=== PATIENT | female | born 1990 | race Caucasian/White ===

== ENCOUNTER 2024-11-17 08:47 | Emergency (ER) | payer OTHER, SELFPAY ==
[2024-11-17] VITALS (7 sets, daily range): BP systolic 115–137; BP diastolic 69–81; PULSE 65–71; RESP 18; TEMP 36.6; O2SAT 92–100; BMI 28.8
[2024-11-17 10:15] LABS: HCG Quantitative /Beta subunit 19783 mIU/mL
--- NOTE | 2024-11-17 10:27 | ED_ITS ---
HPI - General Adult General Chief complaint: OB/Uterine Contractions Stated complaint: possible miscarriage Time Seen by Provider: 11/17/24 08:58 Source: patient Mode of arrival: Family Vehicle History of Present Illness HPI narrative: 34-year-old with LMP September 27. She was seen at [facility] on November 16 with complaints of light vaginal bleeding and mild right lower quadrant cramping. On November 12 she had a beta hCG of 28,000 per [facility] records. Ultrasound done on the shows single intrauterine gestational sac with yolk sac and possible pole. No cardiac activity is seen finding is concerning for intrauterine demise and spontaneous in progress. Small subchorionic hematoma was also noted. Patient felt that she was given contradictory information and answers and comes in today with further questions. Continues to have mild spotting and mild cramping Review of Systems Review of Systems Narrative: Pertinent positive and negative findings as per HPI Patient History Social History Smoking Status: Never smoker Smoking Status: Never smoker Exam Initial Vital Signs Initial Vital Signs: Vital Signs Temperature 97.9 F 11/17/24 09:02 Pulse Rate 71 11/17/24 09:02 Respiratory Rate 18 11/17/24 09:02 Blood Pressure 125/69 11/17/24 09:02 Pulse Oximetry 100 11/17/24 09:02 Oxygen Delivery Method Room Air 11/17/24 09:02 General: Alert appropriate in no acute distress Respiratory: Able to speak in full sentences, no obvious respiratory distress Skin: No obvious rashes, warm and dry Neurologic: Grossly intact no obvious asymmetries or abnormalities Psych: Tearful but otherwise appropriate insight and affect, cooperative Course Orders Ordered: ED Orders 11/17/24 09:15 Beta HCG, Quant [HCG Quantitative /Beta subunit] Stat Vital Signs Vital signs: Vital Signs - 8 hr 11/17/24 09:02 Temperature 97.9 F Pulse Rate 71 Respiratory Rate 18 Blood Pressure 125/69 Pulse Oximetry 100 Oxygen Delivery Method Room Air Medical Decision Making Lab Data Labs: Lab Results 11/17/24 Range/Units 09:15 HCG, Quant 88108 mIU/mL [facility] Narrative Medical decision making narrative: 34-year-old with ongoing miscarriage. was identified on the if the quantitative hCG of 28,000, she was seen at [facility] on this 6 with the ultrasound showing small subchorionic hematoma, no clear pole and no cardiac activity. Quantitative hCG on the 6th was 25,527. Blood type is A positive Quantitative hCG is unfortunately still dropping and down to 19,783. The patient's looking for reassurance, wondering if there is anything that can be done, any hope that this will continue to be a viable . Discuss all of this. With the ultrasound from yesterday that continued decreasing hCG is will go on to be a miscarriage. Reviewed with her what to expect, likely normal menstrual cycle leg bleeding with perhaps heavier bleeding on the 1st day. Reassured her that this is not going to affect her fertility, encouraged her to continue her vitamins. She would questions about when she can try getting again and we discussed the fact that giving her body 3 months to fully recover and make sure that she is perfectly healthy before trying again is typically the usual recommendation. There was no indication for additional imaging or hospitalization at this time. She is given copies of lab work, ultrasound from [facility] and hCG from today and we will follow up with her primary doctor Discharge Plan Departure Patient Disposition: Home Clinical Impression: Miscarriage Instructions: DI for Miscarriage Activity Restrictions/Additional Instructions: Thank you for coming in today, I am sorry that you are dealing with this loss can be very difficult to deal with an feel very isolating. As we talked about, approximately a 3rd of pregnancies and in early miscarriages. This miscarriage is not going to affect you are fertility going forward. With your quantitative hCG continuing to drop and the ultrasound yesterday that did not show obvious pole with cardiac activity (which would be expected at this point in your ) this is going to continue to a full loss. I suspect that you will have. Similar to what you usually have with a bit heavier bleeding on the 1st day. You may have some cramping, ibuprofen can be helpful in dealing with this I have given you ultrasound and blood work to share with your primary care physician Please do continue taking your vitamins If you find that you are having excessively heavy bleeding, going through more than a pad an hour for more than 4 hours at a time, noticed bright red blood from your vagina or are dizzy due to the bleeding you do need to return to the emergency department Stand Alone Forms: Patient Portal/API/Survey
== END 2024-11-17 11:13 | disposition home or self-care (01) ==
PROVIDERS: Emergency Provider Emergency Medicine
DX: O03.9 Complete or unspecified spontaneous abortion without complication (principal)
CPT/HCPCS: 36415; 84702; 99281; 99283

== ENCOUNTER 2024-11-26 05:55 | Emergency (ER) | payer OTHER, SELFPAY ==
[2024-11-26] VITALS (8 sets, daily range): BP systolic 92–98; BP diastolic 51–55; PULSE 51–64; RESP 18; TEMP 36.4; O2SAT 97–100; BMI 28.5
--- NOTE | 2024-11-26 06:08 | DI.US.S_ITS ---
PROCEDURE: US OB <= 14 WEEKS FETUS INDICATIONS: Miscarriage OUTSIDE/PRIOR DATING DATA: Not available TECHNIQUE: Real-time scanning was performed of the fetus and maternal pelvic organs, with image documentation. COMPARISON: None. FINDINGS: Embryo: No intrauterine gestation is seen. No cardiac activity is detected. There is echogenic material seen within the lower uterine segment near cervix. Maternal organs: Not evaluated. IMPRESSION: Limited exam. No intrauterine gestation is seen. Possible retained product within lower uterine segment near cervix. Finding is consistent with spontaneous with retained products. Clinician was present during the exam. We strive to produce accurate, complete, and clear reports of imaging services. To assist us in improving patient care, this report was composed using standard report templates and voice recognition software. Therefore, it may contain abnormal punctuation, insertions and/or omissions. Occasional wrong-word or sound-alike substitutions may occur. Though we review the report and make efforts to correct it, we do recommend that the report be read carefully in proper context to recognize any text inaccuracies. Dictated by: Flex Ashley M.D. on 11/26/2024 at 8:58 Approved by: Flex Ashley M.D. on 11/26/2024 at 9:00
[2024-11-26 06:09] LABS: Add Manual Diff / Slide Review NO; Basophils Absolute Auto 100 /uL (0-100); Basophils Percent Auto 0.5 % (0-2); Eosinophils Absolute Auto 0 /uL (0-450); Eosinophils Percent Auto 0.1 % (2-4); Hematocrit 35.9 % (36-46); Hemoglobin 12.1 g/dL (12.0-16.0); Lymphocytes Absolute Auto 1200 /uL (1100-4500); Lymphocytes Percent Auto 12.5 % (25-40); Mean Corpuscular HGB Conc 33.8 % (30-36); Mean Corpuscular Hemoglobin 30.8 PG (26-34); Mean Corpuscular Volume 91.3 fL (80-100); Monocytes Absolute Auto 400 /uL (0-900); Monocytes Percent Auto 3.8 % (3-14); Neutrophils Absolute Auto 8200 /uL (1500-7000); Neutrophils Percent Auto 83.1 % (50-75); Platelet Count 240 X10^3/uL (150-400); Red Blood Cell Count 3.94 X10^6/uL (4.0-5.2); Red Cell Distribution Width 13.7 % (11.6-14.8); White Blood Cell Count 9.8 X10^3/uL (4.5-11.0)
--- NOTE | 2024-11-26 06:11 | ED.PREGNANCY ---
HPI - <Ashley Adame DO - Last Filed: 11/26/24 17:56> General Chief complaint: Vaginal Bleeding Stated complaint: abd pain/ preg 5 wks-6days Time Seen by Provider: 11/26/24 06:00 History of Present Illness HPI Narrative: Patient 34-year-old female presenting to day with vaginal bleeding. She was currently 5 weeks history of cervical cancer. She was seen evaluated here November 17 diagnosed with miscarriage, her HCG was decreasing slightly she did have an ultrasound which showed an IUP and is type A positive. Ultrasound also showed a subchorionic hematoma as well. She followed up with her primary care provider since then she is continued to have spotting however tonight she was having extreme intense pain cramping and bleeding. Tonight she was going through more than 2 pads in 1 hour he was not passed out. EMS reports that she was in extreme pain requiring 150mcg of fentanyl and 20 mg ketamine Related Data Previous Rx's Medication Instructions Recorded ondansetron 4 mg disintegrating 4 mg PO Q8H PRN nausea and 11/26/24 tablet vomiting #14 tabs oxycodone-acetaminophen 5 mg-325 1 tab PO Q6H PRN pain #14 tabs 25 mg tablet Allergies Allergy/AdvReac Type Severity Reaction Status Date / Time No Known Drug Allergies Allergy Verified 11/26/24 06:47 Exam <Ashley Adame DO - Last Filed: 11/26/24 17:56> Initial Vital Signs Initial Vital Signs: Vital Signs Temperature 97.6 F 11/26/24 08:14 Pulse Rate 52 L 11/26/24 08:14 Blood Pressure 98/51 L 11/26/24 08:14 Pulse Oximetry 97 11/26/24 08:14 GENERAL: Alert 34-year-old female appears uncomfortable HEENT: Head atraumatic,EOMI, pupils reactive, face symmetric, moist mucous membranes CARDIOVASCULAR: Regular rate and rhythm without murmurs, rubs or gallops. RESPIRATORY: Breath sounds equal bilaterally, no wheezes rales or rhonchi. ABDOMEN: Soft, nontender. Normoactive bowel sounds all 4 quadrants. No guarding or rebound. PELVIC: External genitalia is normal, dark vaginal bleeding os open tissue at os EXTREMITIES: Normal range of motion, no clubbing or edema. Neurovascularly intact NEUROLOGICAL: Alert and oriented x4.Normal gait and speech. Cranial nerves II through XII grossly intact. SKIN: Warm, dry, no laceration, no petechiae, no rashes or lesions. <Meche Lebron MD - Last Filed: 11/26/24 10:19> Initial Vital Signs Initial Vital Signs: Vital Signs Temperature 97.6 F 11/26/24 08:14 Pulse Rate 52 L 11/26/24 08:14 Blood Pressure 98/51 L 11/26/24 08:14 Pulse Oximetry 97 11/26/24 08:14 Course <Ashley Adame DO - Last Filed: 11/26/24 17:56> Orders Ordered: Discontinued Medications Hydromorphone HCl (Hydromorphone 0.5 Mg Inj) 0.5 mg IV NOW ONE Stop: 11/26/24 06:17 Last Admin: 11/26/24 06:22 Dose: 0.5 mg Documented By: Acetaminophen (Ofirmev) 1,000 mg in 100 mls @ 400 mls/hr IV NOW ONE Stop: 11/26/24 06:26 Last Infusion: 11/26/24 06:48 Dose: Infused Documented By: Admin: 11/26/24 06:23 Dose: 400 mls/hr Documented By: Sodium Chloride (Normal Saline 0.9%) 1,000 mls @ 1,000 mls/hr IV BOLUS ONE Stop: 11/26/24 10:30 Last Infusion: 11/26/24 10:30 Dose: Infused Documented By: Admin: 11/26/24 09:40 Dose: 1,000 mls/hr Documented By: CONG Ketorolac Tromethamine (Ketorolac 30 Mg/Ml Vial) 15 mg IV NOW ONE Stop: 11/26/24 06:44 Last Admin: 11/26/24 06:49 Dose: 15 mg Documented By: Oxycodone/Acetaminophen (Oxycodone/Acetaminophen 5/325 Tablet) 1 tab PO NOW ONE Stop: 11/26/24 07:44 Last Admin: 11/26/24 07:57 Dose: 1 tab Documented By: CONG Vital Signs Vital signs: Vital Signs - 8 hr 11/26/24 09:56 11/26/24 09:56 11/26/24 10:00 Pulse Rate 64 53 L Blood Pressure 94/53 L Pulse Oximetry 99 99 11/26/24 10:00 Pulse Rate Blood Pressure 96/54 L Pulse Oximetry <Meche Lebron MD - Last Filed: 11/26/24 10:19> Orders Ordered: Discontinued Medications Hydromorphone HCl (Hydromorphone 0.5 Mg Inj) 0.5 mg IV NOW ONE Stop: 11/26/24 06:17 Last Admin: 11/26/24 06:22 Dose: 0.5 mg Documented By: Acetaminophen (Ofirmev) 1,000 mg in 100 mls @ 400 mls/hr IV NOW ONE Stop: 11/26/24 06:26 Last Infusion: 11/26/24 06:48 Dose: Infused Documented By: Admin: 11/26/24 06:23 Dose: 400 mls/hr Documented By: Sodium Chloride (Normal Saline 0.9%) 1,000 mls @ 1,000 mls/hr IV BOLUS ONE Stop: 11/26/24 10:30 Last Infusion: 11/26/24 10:30 Dose: Infused Documented By: Admin: 11/26/24 09:40 Dose: 1,000 mls/hr Documented By: CONG Ketorolac Tromethamine (Ketorolac 30 Mg/Ml Vial) 15 mg IV NOW ONE Stop: 11/26/24 06:44 Last Admin: 11/26/24 06:49 Dose: 15 mg Documented By: Oxycodone/Acetaminophen (Oxycodone/Acetaminophen 5/325 Tablet) 1 tab PO NOW ONE Stop: 11/26/24 07:44 Last Admin: 11/26/24 07:57 Dose: 1 tab Documented By: CONG Vital Signs Vital signs: Vital Signs - 8 hr 11/26/24 09:56 11/26/24 09:56 11/26/24 10:00 Pulse Rate 64 53 L Blood Pressure 94/53 L Pulse Oximetry 99 99 11/26/24 10:00 Pulse Rate Blood Pressure 96/54 L Pulse Oximetry MDM - OB/Uterine Contractions <Ashley Adame DO - Last Filed: 11/26/24 17:56> Lab Data 11/26/24 06:00 11/26/24 06:00 Labs: Lab Results 11/26/24 11/26/24 Range/Units 06:00 07:45 WBC 9.8 (4.5-11.0) X10^3/uL RBC 3.94 L (4.0-5.2) X10^6/uL Hgb 12.1 (12.0-16.0) g/dL Hct 35.9 L (36-46) % MCV 91.3 (80-100) fL MCH 30.8 (26-34) PG MCHC 33.8 (30-36) % RDW 13.7 (11.6-14.8) % Plt Count 240 (150-400) X10^3/uL Neut % (Auto) 83.1 H (50-75) % Lymph % (Auto) 12.5 L (25-40) % [place] % (Auto) 3.8 (3-14) % Eos % (Auto) 0.1 L (2-4) % Baso % (Auto) 0.5 (0-2) % Neut # (Auto) 8200 H (4081-8113) /uL Lymph # (Auto) 1200 (5580-1052) /uL [place] # (Auto) 400 (0-900) /uL Eos # (Auto) 0 (0-450) /uL Baso # (Auto) 100 (0-100) /uL Sodium 137 (137-145) mmol/L Potassium 3.6 (3.4-5.1) mmol/L Chloride 110 H (98-107) mmol/L Carbon Dioxide 20 L (22-32) mmol/L BUN 10 (7-17) mg/dL Creatinine 0.73 (0.52-1.04) mg/dL Estimated GFR > 60 (>60) mL/min BUN/Creatinine Ratio 13.7 (6-22) Glucose 108 H (70-100) mg/dL Calcium 8.6 (8.4-10.2) mg/dL Total Bilirubin 0.9 (0.2-1.3) mg/dL AST 22 (14-36) IU/L ALT 16 (<35) IU/L Alkaline Phosphatase 39 (38-126) U/L Total Protein 6.3 (6.3-8.2) g/dL Albumin 3.7 (3.5-5.0) g/dL Globulin 2.6 (1.7-4.1) g/dL Albumin/Globulin Ratio 1.4 (1.0-2.8) HCG, Quant 91822 mIU/mL Urine Color Red Urine Appearance Sl cloudy Urine pH 8.5 H (4.5-8.0) Ur Specific [place] 1.015 (1.000-1.035) Urine Protein 1+ H (Negative) Urine Glucose (UA) Negative (Negative) g/dL Urine Ketones Negative (NEGATIVE) Urine Occult Blood 3+ H (Negative) Urine Nitrate Negative (Negative) Urine Bilirubin Negative (NEGATIVE) Urine Urobilinogen 0.2 (0.2) E.U./dL Ur Leukocyte Esterase Negative (NEGATIVE) Urine RBC 30-100/hpf H (0-5/HPF) Urine WBC None seen (0-5/HPF) Ur Squamous Epith Cells 1-5 /hpf (0-5/HPF) Urine Bacteria None seen (None) Ur Culture Indicated? Cult not indicated Vol Urine Centrifuged 10ml (spun) Blood Type A Positive MDM Narrative Medical decision making narrative: Patient 34-year-old female presenting today with ongoing miscarriage. Having severe intense pain and bleeding tonight. She was a decreasing hCG was 19,783 now is 10,632. No evidence of anemia hemoglobin 12.1 hematocrit 35.9 no leukocytosis Exam does show bleeding does not appear to be excessive she has some tissue at the os. <Meche Lberon MD - Last Filed: 11/26/24 10:19> Lab Data Labs: Lab Results 11/26/24 11/26/24 Range/Units 06:00 07:45 WBC 9.8 (4.5-11.0) X10^3/uL RBC 3.94 L (4.0-5.2) X10^6/uL Hgb 12.1 (12.0-16.0) g/dL Hct 35.9 L (36-46) % MCV 91.3 (80-100) fL MCH 30.8 (26-34) PG MCHC 33.8 (30-36) % RDW 13.7 (11.6-14.8) % Plt Count 240 (150-400) X10^3/uL Neut % (Auto) 83.1 H (50-75) % Lymph % (Auto) 12.5 L (25-40) % [place] % (Auto) 3.8 (3-14) % Eos % (Auto) 0.1 L (2-4) % Baso % (Auto) 0.5 (0-2) % Neut # (Auto) 8200 H (6361-8338) /uL Lymph # (Auto) 1200 (9272-4594) /uL [place] # (Auto) 400 (0-900) /uL Eos # (Auto) 0 (0-450) /uL Baso # (Auto) 100 (0-100) /uL Sodium 137 (137-145) mmol/L Potassium 3.6 (3.4-5.1) mmol/L Chloride 110 H (98-107) mmol/L Carbon Dioxide 20 L (22-32) mmol/L BUN 10 (7-17) mg/dL Creatinine 0.73 (0.52-1.04) mg/dL Estimated GFR > 60 (>60) mL/min BUN/Creatinine Ratio 13.7 (6-22) Glucose 108 H (70-100) mg/dL Calcium 8.6 (8.4-10.2) mg/dL Total Bilirubin 0.9 (0.2-1.3) mg/dL AST 22 (14-36) IU/L ALT 16 (<35) IU/L Alkaline Phosphatase 39 (38-126) U/L Total Protein 6.3 (6.3-8.2) g/dL Albumin 3.7 (3.5-5.0) g/dL Globulin 2.6 (1.7-4.1) g/dL Albumin/Globulin Ratio 1.4 (1.0-2.8) HCG, Quant 21971 mIU/mL Urine Color Red Urine Appearance Sl cloudy Urine pH 8.5 H (4.5-8.0) Ur Specific [place] 1.015 (1.000-1.035) Urine Protein 1+ H (Negative) Urine Glucose (UA) Negative (Negative) g/dL Urine Ketones Negative (NEGATIVE) Urine Occult Blood 3+ H (Negative) Urine Nitrate Negative (Negative) Urine Bilirubin Negative (NEGATIVE) Urine Urobilinogen 0.2 (0.2) E.U./dL Ur Leukocyte Esterase Negative (NEGATIVE) Urine RBC 30-100/hpf H (0-5/HPF) Urine WBC None seen (0-5/HPF) Ur Squamous Epith Cells 1-5 /hpf (0-5/HPF) Urine Bacteria None seen (None) Ur Culture Indicated? Cult not indicated Vol Urine Centrifuged 10ml (spun) Blood Type A Positive MDM Narrative Medical decision making narrative: Patient 34-year-old female presenting today with ongoing miscarriage. Having severe intense pain and bleeding tonight. She was a decreasing hCG was 19,783 now is 10,632. No evidence of anemia hemoglobin 12.1 hematocrit 35.9 no leukocytosis Exam does show bleeding does not appear to be excessive she has some tissue at the os. 700 Dr Lebron Patient is independently examined, labs as well as ultrasound independently reviewed. Patient's pain has been relatively well-controlled it is beginning to have some increasing cramping and we discussed pain control. Discussed the entire process. At this point her hCG is going inappropriately. Her ultrasound shows very small amount of products of conception in the lower uterine segment and I suspect her pain is dilation of the internal os and I suspect that she is going to pass this small amount of tissue shortly. Explain in the process and what were seen in the ultrasound was reassuring for the patient. We will try Percocet and we will continue to watch. She is far too anxious to discharge at this time. 9am patient is re-evaluated. Has been quite effective. Has been given a L of fluid. With shared decision-making we opted for discharge home. She will be given a small prescription for Percocet to help over the next couple of days. She does have resources for both emotional and physical help. She is safe for discharge Discharge Plan Departure Patient Disposition: Home Clinical Impression: Miscarriage Instructions: DI for Miscarriage Activity Restrictions/Additional Instructions: Thank you for coming in today Your miscarriage is currently happening. Significant cramping and pain that you are feeling is your cervix dilating enough to let out the small amount of cells and clot. Your ultrasound does not show any other significant pathology or complications. Your blood work is reassuring. You have been given fluids and narcotics to help with the cervical dilation and contractions that are causing the cramping. In the emergency room you are given a dose of Toradol which is in the same family as ibuprofen. You can begin taking additional ibuprofen around noon today. I will give you a prescription for Percocet which is oxycodone plus Tylenol. If you are still cramping and hurting I would recommend to ibuprofen and 1 Percocet around noon. You can repeat this every 6 hours as needed. I suspect that once the main bolus of tissue and clot passes through your cervix, your pain we will significantly subside. You will have continued menstrual like bleeding for a couple of days. After the main clot has passed, you likely have bleeding similar to very heavy. For 12-24 hours. If you are gushing blood, bright red blood, going through more than 2 pads per hour or are dizzy lightheaded and obviously feeling worse, please return to the ER I am in the ER all day today and you can absolutely call back to talk with me if you have questions. My shift and 6:00 p.m.. The ER phone #[phone] I wish you the very best Prescriptions: New ondansetron 4 mg tablet,disintegrating 4 mg PO Q8H PRN (Reason: nausea and vomiting) Qty: 14 0RF oxycodone-acetaminophen 5-325 mg tablet 1 tab PO Q6H PRN (Reason: pain) Qty: 14 0RF Stand Alone Forms: Patient Portal/API/Survey
[2024-11-26 06:21] LABS: Alanine Aminotransferase 16 IU/L (<35); Albumin 3.7 g/dL (3.5-5.0); Albumin Globulin Ratio 1.4 (1.0-2.8); Alkaline Phosphatase 39 U/L (38-126); Aspartate Aminotransferase 22 IU/L (14-36); BUN Creatinine Ratio 13.7 (6-22); Bilirubin Total 0.9 mg/dL (0.2-1.3); Blood Urea Nitrogen 10 mg/dL (7-17); Calcium 8.6 mg/dL (8.4-10.2); Carbon Dioxide 20 mmol/L (22-32); Chloride 110 mmol/L (98-107); Estimated Glomerular Filt Rate > 60 mL/min (>60); Globulin 2.6 g/dL (1.7-4.1); Glucose 108 mg/dL (70-100); HEMOLYSIS < 15 (0-50); Potassium 3.6 mmol/L (3.4-5.1); Sodium 137 mmol/L (137-145); Total Protein 6.3 g/dL (6.3-8.2)
[2024-11-26] MEDS: HYDROMORPHONE 0.5 MG INJ IV (06:22)
[2024-11-26] MEDS: ACETAMINOPHEN IV 1,000 MG/100 ML VIAL 400 MG IV (06:23)
[2024-11-26 06:38] LABS: HCG Quantitative /Beta subunit 10632 mIU/mL
--- NOTE | 2024-11-26 06:39 | PC.NURSE ---
Assisted with pelvic. Patient unable to collect a sample at this time
--- NOTE | 2024-11-26 06:40 | PC.NURSE ---
Patient passing POC with minimal bleeding
[2024-11-26] MEDS: KETOROLAC 30 MG/ML VIAL 15 MG IV (06:49)
[2024-11-26] MEDS: OXYCODONE/ACETAMINOPHEN 5/325 TABLET 1 TAB PO (07:57)
[2024-11-26 08:00] LABS: Appearance Urine UA SL CLOUDY; Bilirubin Urine UA NEGATIVE (NEGATIVE); Color Urine UA RED; Glucose Urine UA NEGATIVE (Negative); Ketones Urine UA NEGATIVE (NEGATIVE); Leukocyte Esterase Urine UA NEGATIVE (NEGATIVE); Nitrite Urine UA NEGATIVE (Negative); Occult Blood Urine UA 3+ (Negative); Protein Urine UA 1+ (Negative); Specific Gravity Urine UA 1.015 (1.000-1.035); Urine Volume 10mL (spun); Urobilinogen Urine UA 0.2 E.U./dL (0.2); pH Urine UA 8.5 (4.5-8.0)
[2024-11-26 08:04] LABS: Bacteria Urine None Seen; Culture Indicated Urine Cult Not Indicated; RBC Urine 30-100/HPF (0-5/HPF); Squamous Epithelial Cell Urine 1-5 /HPF (0-5/HPF); WBC Urine None Seen (0-5/HPF)
[2024-11-26] MEDS: SODIUM CHLORIDE 0.9% 1,000 ML 1000 ML IV (09:40)
== END 2024-11-26 10:28 | disposition home or self-care (01) ==
PROVIDERS: Emergency Medicine; Emergency Provider Emergency Medicine
DX: O03.9 Complete or unspecified spontaneous abortion without complication (principal); Z85.41 Personal history of malignant neoplasm of cervix uteri
CPT/HCPCS: 36415; 76801; 80053; 81001; 84702; 85025; 86900; 86901; 96361; 96365; 96375; 99284; J0134; J1171; J1885

== ENCOUNTER → 2025-06-22 08:30 | Outpatient (CLI) | payer OTHER, SELFPAY ==
[2025-06-26 19:07] LABS: Gest Age on Col Date 15.7 weeks (.); OSBR Risk 1IN 8106 (.)
== END ==
PROVIDERS: Referring Provider Obstetrics & Gynecology; Visit Provider Obstetrics & Gynecology
DX: Z34.02 Encounter for supervision of normal first pregnancy, second trimester (principal)
CPT/HCPCS: 36415; 82105

== ENCOUNTER → 2025-06-26 15:10 | Outpatient (CLI) | payer OTHER, SELFPAY ==
[2025-06-26 15:38] LABS: Appearance Urine UA CLEAR; Bilirubin Urine UA NEGATIVE (NEGATIVE); Color Urine UA YELLOW; Glucose Urine UA NEGATIVE (Negative); Ketones Urine UA NEGATIVE (NEGATIVE); Leukocyte Esterase Urine UA NEGATIVE (NEGATIVE); Nitrite Urine UA NEGATIVE (Negative); Occult Blood Urine UA NEGATIVE (Negative); Protein Urine UA NEGATIVE (Negative); Specific Gravity Urine UA 1.025 (1.000-1.035); Urobilinogen Urine UA 0.2 E.U./dL (0.2)
[2025-06-26 15:42] LABS: pH Urine UA 6.0 (4.5-8.0)
[2025-06-26 15:44] LABS: Culture Indicated Urine Cult Not Indicated
== END ==
PROVIDERS: Obstetrics & Gynecology; Referring Provider Emergency Medicine; Visit Provider Emergency Medicine
DX: R30.0 Dysuria (principal)
CPT/HCPCS: 81001

== ENCOUNTER 2025-07-02 06:51 | Emergency (ER) | payer OTHER, SELFPAY ==
[2025-07-02] VITALS (12 sets, daily range): BP systolic 97–106; BP diastolic 54–66; PULSE 55–75; RESP 12–23; TEMP 36.8; O2SAT 97–100; BMI 30.4
--- NOTE | 2025-07-02 07:02 | ED.GENADULT ---
HPI - General Adult General Stated complaint: Per patient, having [place] on and off Time Seen by Provider: 07/02/25 06:54 Related Data Home Medications ?Medication ?Instructions ?Recorded ?Confirmed melatonin 2.5 mg chewable tablet 2.5 mg PO BEDTIME PRN 04/16/25 06/22/25 vitamin-ferrous sulfate tab PO 04/16/25 06/22/25 27 mg iron-folic acid 0.8 mg tablet Previous Rx's ?Medication ?Instructions ?Recorded ondansetron 4 mg disintegrating 4 mg PO Q6H PRN nausea and 06/04/25 tablet vomiting #20 tabs pyridoxine (vitamin B6) 50 mg 50 mg PO DAILY PRN nausea and 06/18/25 tablet vomiting #30 tabs nitrofurantoin macrocrystal 100 mg 100 mg PO BID #10 caps 06/26/25 capsule Allergies Allergy/AdvReac Type Severity Reaction Status Date / Time mushroom Allergy Mild Rash Verified 07/02/25 07:08 COVID vaccine [id number] (6 AdvReac Intermediate Verified 07/02/25 07:08 mos-4 yrs) ([employer]) (From [employer] COVID (6mo-4y)PF) Patient History Medical History (Updated 05/17/25 @ 18:49 by Diana Patel) Asthma (~2000) PTSD (post-traumatic stress disorder) (~2012) Depression (~2012) Anxiety (~2012) Cervical cancer (~2012) LGSIL on Pap smear of cervix (~08/2013) Chlamydia (~2017) Surgical History (Updated 05/17/25 @ 18:49 by Diana Patel) H/O LEEP (loop electrosurgical excision procedure) of cervix complicating (~2012) No pertinent past surgical history Family History (Updated 05/17/25 @ 18:52 by Diana Patel) Mother Vertigo Hypertension Cervical cancer Complex cyst of both ovaries Ovarian malignancy Heart disease Hyperlipidemia Mental health problem Father Diabetes mellitus Hypertension Mental health problem Grandfather Heart attack Dementia Heart disease Hypertension Hyperlipidemia Mental health problem Grandmother Dementia Kidney failure Hypertension Heart disease Hyperlipidemia Mental health problem Grandmother Heart attack Heavy smoker Alcoholism Alcoholic liver disease Heart disease Hypertension Hyperlipidemia Mental health problem Grandfather Diabetes mellitus Heart disease Hyperlipidemia Hypertension Social History marital status: unmarried,living together number of children: 0 household members: significant other and family lives independently: Yes caregiver/support person: Yes (grandmother) housing: house pets and animals: Yes (cats, dog) education level: other occupational status: employed current occupational exposures/hazards: Yes (air ordinance, 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 david needs: No travel history: recent seatbelt use: always helmet use: Yes water heater temp set < 120 deg: Yes working smoke detector in home: Yes fire extinguisher in home: Yes carbon monox detector in home: Yes firearms in home: Yes firearms unloaded and locked: Yes do you feel safe at home: Yes in current or past relationships, have you been: other Tobacco: How many years used: 14 quit status: has quit before second hand exposure: No alcohol intake: former substance use type: does not use during the past year weight has: increased > 10 lbs well-balanced diet: rarely or never daily servings fruits/ve-1 caffeine: Yes (aware of 200mg limit) Type(s) of exercise: walking and weight lifting Discharge Plan Departure Prescriptions: No Action ondansetron 4 mg tablet,disintegrating 4 mg PO Q6H PRN (Reason: nausea and vomiting) Qty: 20 0RF pyridoxine (vitamin B6) 50 mg tablet 50 mg PO DAILY PRN (Reason: nausea and vomiting) Qty: 30 0RF nitrofurantoin macrocrystal 100 mg capsule 100 mg PO BID Qty: 10 0RF Rx Instructions: must administer with a meal/food vit-ferrous sulfat-FA 27 mg iron- 0.8 mg tablet PO melatonin 2.5 mg tablet,chewable 2.5 mg PO BEDTIME PRN Referrals: Provider,Bren CROOKS [Primary Care Provider, Family Practice]
--- NOTE | 2025-07-02 07:43 | ED.PREGNANCY ---
HPI - General Chief complaint: OB/Uterine Contractions Stated complaint: Per patient, having Phelps Jeffers on and off Time Seen by Provider: 07/02/25 06:54 Source: patient and family Mode of arrival: Family Vehicle Limitations: no limitations History of Present Illness HPI Narrative: 35-year-old female patient, otherwise healthy, 3 para 0 SAB 2 at 17+ weeks EGA by LMP and ultrasound who complains of lower uterine/abdominal tightening about every 10 minutes since 2:00 a.m. this morning. No fever, dysuria, nausea or diarrhea. Related Data Home Medications ?Medication ?Instructions ?Recorded ?Confirmed melatonin 2.5 mg chewable tablet 2.5 mg PO BEDTIME PRN 04/16/25 06/22/25 vitamin-ferrous sulfate tab PO 04/16/25 06/22/25 27 mg iron-folic acid 0.8 mg tablet Previous Rx's ?Medication ?Instructions ?Recorded ondansetron 4 mg disintegrating 4 mg PO Q6H PRN nausea and 06/04/25 tablet vomiting #20 tabs pyridoxine (vitamin B6) 50 mg 50 mg PO DAILY PRN nausea and 06/18/25 tablet vomiting #30 tabs nitrofurantoin macrocrystal 100 mg 100 mg PO BID #10 caps 06/26/25 capsule Allergies Allergy/AdvReac Type Severity Reaction Status Date / Time mushroom Allergy Mild Rash Verified 07/02/25 07:08 COVID vaccine [id number] (6 AdvReac Intermediate Verified 07/02/25 07:08 mos-4 yrs) ([facility]) (From [facility] COVID (6mo-4y)PF) Review of Systems Review of Systems ROS Unobtainable: All systems reviewed & are unremarkable except as noted in HPI and below Gastrointestinal Gastrointestinal: Reports as per HPI Genitourinary Genitourinary: Reports as per HPI Exam Narrative Exam Narrative: General: Alert and conversant. No distress. Appears well nourished and well hydrated Lungs: Clear to auscultation with good air movement. No wheezing, rales or rhonchi. No respiratory distress Abdomen: Soft,. Mild suprapubic tenderness. With no distention or masses. Normal bowel sounds. No rebound or guarding Musculoskeletal: Exam of the extremities, axial spine and ribcage reveals no deformity, bony tenderness or swelling. Range of motion intact Neuro: Alert and oriented. Cranial nerves, motor, sensory and cerebellar all grossly intact. No focal deficit Skin: Warm and normal color. No rashes Psychological: Normal affect and interaction. No evidence of delusion or psychosis. Normal mood. Initial Vital Signs Initial Vital Signs: Vital Signs Pulse Rate 75 07/02/25 07:02 Respiratory Rate 23 07/02/25 07:02 Blood Pressure 106/66 07/02/25 07:02 Pulse Oximetry 98 07/02/25 07:02 Course Course Course Narrative: 08:40 Second trimester OB ultrasound is unremarkable with no concerning findings. I discussed the patient's care with Dr. Tello OBGYN. She requests that we also check wet mount for bacterial vaginosis and urine GC chlamydia. Otherwise the plan will be hydration and follow up with OBGYN as needed or return to the ER if worse. Urinalysis, wet mount and GC chlamydia all negative. Patient has minimal symptoms at this point. Orders Ordered: ED Orders 07/02/25 07:47 US OB >= 14 weeks Fetus Stat 07/02/25 09:00 Chlamydia Gonorrhea PCR -URINE Stat Urinalysis and Microscopic Stat 07/02/25 09:30 Wet Prep Tric BV Candice Stat Vital Signs Vital signs: Vital Signs - 8 hr 07/02/25 08:00 07/02/25 08:00 07/02/25 08:21 Pulse Rate 55 L 58 L Respiratory Rate 14 13 Blood Pressure 98/58 L Pulse Oximetry 99 100 07/02/25 08:21 07/02/25 08:30 07/02/25 08:30 Pulse Rate 59 L Respiratory Rate 14 Blood Pressure 103/61 100/59 L Pulse Oximetry 99 07/02/25 08:59 07/02/25 08:59 07/02/25 09:00 Pulse Rate 56 L Respiratory Rate 18 Blood Pressure 105/56 L 98/59 L Pulse Oximetry 100 07/02/25 09:00 07/02/25 09:30 07/02/25 09:30 Pulse Rate 56 L 59 L Respiratory Rate 16 21 Blood Pressure 99/59 L Pulse Oximetry 99 100 07/02/25 10:00 07/02/25 10:00 07/02/25 10:30 Pulse Rate 58 L Respiratory Rate 17 Blood Pressure 98/54 L 101/61 Pulse Oximetry 100 07/02/25 10:30 07/02/25 11:00 07/02/25 11:00 Pulse Rate 59 L 59 L Respiratory Rate 15 16 Blood Pressure 100/58 L Pulse Oximetry 100 100 MDM - OB/Uterine Contractions Lab Data Labs: Lab Results 07/02/25 Range/Units 09:00 Urine Color Yellow Urine Appearance Clear Urine pH 7.5 (4.5-8.0) Ur Specific Otis 1.010 (1.000-1.035) Urine Protein Negative (Negative) Urine Glucose (UA) Negative (Negative) g/dL Urine Ketones Negative (NEGATIVE) Urine Occult Blood Negative (Negative) Urine Nitrate Negative (Negative) Urine Bilirubin Negative (NEGATIVE) Urine Urobilinogen 0.2 (0.2) E.U./dL Ur Leukocyte Esterase Negative (NEGATIVE) Urine RBC None seen (0-5/HPF) Urine WBC None seen (0-5/HPF) Ur Squamous Epith Cells None seen (0-5/HPF) Urine Bacteria None seen (None) Ur Culture Indicated? Cult not indicated Vol Urine Centrifuged 10ml (spun) Ur Chlamydia DNA (PCR) Not detected N gonorrhoeae DNA (PCR) Not detected Imaging Data Second trimester OB ultrasound: Radiologist's Impression: IMPRESSION: Limited study demonstrating a living 2nd trimester intrauterine with no sonographic evidence of complications. Comment: Consider return for 2nd trimester anatomy survey at the appropriate time. [facility] Narrative Medical decision making narrative: Patient with lower abdominal intermittent tightness at 17+ weeks EGA who has negative lab work for vaginitis/vaginosis or UTI. As per OBGYN with whom we consulted she will monitor symptoms and follow up closely with them in the next few days. Return to the ER if worse. Discharge Plan Departure Patient Disposition: Home Clinical Impression: Intermittent lower abdominal pain, Phelps Hick's contraction Instructions: DI for Abdominal Pain -- Early Activity Restrictions/Additional Instructions: Plan: Hydration, rest and supportive care. Follow up with OBGYN within the next 3 days. Return to the ER if worse Prescriptions: No Action ondansetron 4 mg tablet,disintegrating 4 mg PO Q6H PRN (Reason: nausea and vomiting) Qty: 20 0RF pyridoxine (vitamin B6) 50 mg tablet 50 mg PO DAILY PRN (Reason: nausea and vomiting) Qty: 30 0RF nitrofurantoin macrocrystal 100 mg capsule 100 mg PO BID Qty: 10 0RF Rx Instructions: must administer with a meal/food vit-ferrous sulfat-FA 27 mg iron- 0.8 mg tablet PO melatonin 2.5 mg tablet,chewable 2.5 mg PO BEDTIME PRN Referrals: ProviderBren [Primary Care Provider, Family Practice] Stand Alone Forms: Patient Portal/API
--- NOTE | 2025-07-02 07:47 | DI.US.S_ITS ---
PROCEDURE: US OB >= 14 WEEKS FETUS INDICATIONS: Contractions pain OUTSIDE/PRIOR DATING DATA: Last menstrual period (LMP): Unknown LMP-based estimated date of delivery (HOLLY): Unknown. First dating scan (date and location): Not applicable. Estimated date of delivery (HOLLY) from first dating scan: 04/16/2025. The calculations are made using the ultrasound HOLLY of 12/04/2025. TECHNIQUE: Real-time scanning was performed of the fetus, with image documentation and biometric measurements. Endovaginal scanning: Not performed COMPARISON: None. FINDINGS: General: A single living intrauterine gestation is present. Presentation: Transverse with head to the maternal left. Placenta: Placental position is posterior and fundal , without previa. Amniotic fluid index: 11.6 cm, normal range is 5-24 cm. Single deepest vertical pocket is 4.1 cm. heart rate: 144 beats per minute. Maternal cervical canal: 6.1 cm long. Normal lower limit is 2.5 cm. Clinically estimated gestational age: 17 weeks 6 days IMPRESSION: Limited study demonstrating a living 2nd trimester intrauterine with no sonographic evidence of complications. Comment: Consider return for 2nd trimester anatomy survey at the appropriate time. We strive to produce accurate, complete, and clear reports of imaging services. To assist us in improving patient care, this report was composed using standard report templates and voice recognition software. Therefore, it may contain abnormal punctuation, insertions and/or omissions. Occasional wrong-word or sound-alike substitutions may occur. Though we review the report and make efforts to correct it, we do recommend that the report be read carefully in proper context to recognize any text inaccuracies. Dictated by: Pal Chavarria M.D. on 07/02/2025 at 8:48 Approved by: Pal Chavarria M.D. on 07/02/2025 at 8:52
[2025-07-02 09:06] LABS: Appearance Urine UA CLEAR; Bilirubin Urine UA NEGATIVE (NEGATIVE); Color Urine UA YELLOW; Glucose Urine UA NEGATIVE (Negative); Ketones Urine UA NEGATIVE (NEGATIVE); Leukocyte Esterase Urine UA NEGATIVE (NEGATIVE); Nitrite Urine UA NEGATIVE (Negative); Occult Blood Urine UA NEGATIVE (Negative); Protein Urine UA NEGATIVE (Negative); Specific Gravity Urine UA 1.010 (1.000-1.035); Urobilinogen Urine UA 0.2 E.U./dL (0.2)
[2025-07-02 09:10] LABS: pH Urine UA 7.5 (4.5-8.0)
[2025-07-02 09:13] LABS: Culture Indicated Urine Cult Not Indicated
[2025-07-02 10:39] LABS: Urine N gonorrhoeae NOT DETECTED
[2025-07-02 10:40] LABS: Urine Chlamydia NOT DETECTED
== END 2025-07-02 11:25 | disposition home or self-care (01) ==
PROVIDERS: Emergency Provider Emergency Medicine
DX: O47.02 False labor before 37 completed weeks of gestation, second trimester (principal); R10.30 Lower abdominal pain, unspecified; Z3A.17 17 weeks gestation of pregnancy
CPT/HCPCS: 76811; 81001; 87210; 87491; 87591; 99282; 99283

== ENCOUNTER → 2025-07-20 13:53 | Outpatient (CLI) | payer OTHER, SELFPAY ==
--- NOTE | 2025-07-20 13:54 | DI.US.S_ITS ---
PROCEDURE: US OB >= 14 WEEKS FETUS
== END ==
LOC: US 13:53
PROVIDERS: Referring Provider Obstetrics & Gynecology; Visit Provider Obstetrics & Gynecology
DX: Z34.02 Encounter for supervision of normal first pregnancy, second trimester (principal); Z3A.19 19 weeks gestation of pregnancy
CPT/HCPCS: 76811

== ENCOUNTER → 2025-08-13 12:44 | Outpatient (CLI) | payer OTHER, SELFPAY ==
--- NOTE | 2025-08-13 12:45 | DI.US.S_ITS ---
PROCEDURE: US OB FOLLOW UP INDICATIONS: complete cardiac views OUTSIDE/PRIOR DATING DATA: First dating scan (date and location): 04/27/2025. Estimated date of delivery (HOLLY) from first dating scan: 12/09/2025. TECHNIQUE: Real-time scanning was performed of the fetus, with image documentation and biometric measurements. Endovaginal scanning: No COMPARISON: [facility], , OB >= 14 WEEKS FETUS, 07/20/2025, 14:07. FINDINGS: General: A single living intrauterine gestation is present. Presentation: Vertex. Placenta: Placental position is posterior , without previa. Amniotic fluid index: 11.3 cm, normal range is 5-24 cm. Single deepest vertical pocket is 3.5 cm. heart rate: 131 beats per minute. Maternal cervical canal: 3.6 cm long. Normal lower limit is 2.5 cm. Clinically estimated gestational age: 23 weeks 1 day. Left ventricular intracardiac focus redemonstrated and normal four-chamber heart. IMPRESSION: 1. Single living IUP redemonstrated with age estimated at 23 weeks 1 day. 2. Normal appearance of the four-chamber heart and left ventricular intracardiac focus redemonstrated. We strive to produce accurate, complete, and clear reports of imaging services. To assist us in improving patient care, this report was composed using standard report templates and voice recognition software. Therefore, it may contain abnormal punctuation, insertions and/or omissions. Occasional wrong-word or sound-alike substitutions may occur. Though we review the report and make efforts to correct it, we do recommend that the report be read carefully in proper context to recognize any text inaccuracies. Dictated by: Jaspreet LOPEZ Interpreted: Kristin Martinez MD on 08/13/2025 at 13:39 Transcribed by: TERRENCE on 08/13/2025 at 13:46 Approved by: Kristin Martinez M.D. on 08/14/2025 at 0:51
== END ==
LOC: US 12:45
PROVIDERS: Referring Provider Obstetrics & Gynecology; Visit Provider Obstetrics & Gynecology
DX: O09.892 Supervision of other high risk pregnancies, second trimester (principal); Z3A.23 23 weeks gestation of pregnancy
CPT/HCPCS: 76816

== ENCOUNTER → 2025-08-22 15:38 | Outpatient (CLI) | payer OTHER, SELFPAY ==
[2025-08-22 16:13] LABS: Hematocrit 32.2 % (36-46); Hemoglobin 10.9 g/dL (12.0-16.0)
[2025-08-22 17:02] LABS: Alanine Aminotransferase 32 IU/L (<35); Albumin 3.7 g/dL (3.5-5.0); Albumin Globulin Ratio 1.3 (1.0-2.8); Alkaline Phosphatase 62 U/L (38-126); Blood Urea Nitrogen 12 mg/dL (7-17); Calcium 9.5 mg/dL (8.4-10.2); Carbon Dioxide 19 mmol/L (22-32); Chloride 108 mmol/L (98-107); Estimated Glomerular Filt Rate > 60 mL/min (>60); Globulin 2.9 g/dL (1.7-4.1); Glucose 80 mg/dL (70-99); HEMOLYSIS < 15 (0-50); Potassium 3.9 mmol/L (3.4-5.1); Sodium 136 mmol/L (137-145); Total Protein 6.6 g/dL (6.3-8.2)
== END ==
PROVIDERS: Referring Provider Obstetrics & Gynecology; Visit Provider Obstetrics & Gynecology
DX: O21.9 Vomiting of pregnancy, unspecified (principal); Z13.0 Encounter for screening for diseases of the blood and blood-forming organs and certain disorders involving the immune mechanism; Z13.1 Encounter for screening for diabetes mellitus
CPT/HCPCS: 36415; 80053; 85014; 85018

== ENCOUNTER → 2025-09-10 08:44 | Outpatient (CLI) | payer OTHER, SELFPAY ==
[2025-09-10 11:33] LABS: GTT (PREG) 1 Hour PP 50gm Dose 96 mg/dL (76-139)
== END ==
PROVIDERS: Referring Provider Obstetrics & Gynecology; Visit Provider Obstetrics & Gynecology
DX: Z13.0 Encounter for screening for diseases of the blood and blood-forming organs and certain disorders involving the immune mechanism (principal); Z13.1 Encounter for screening for diabetes mellitus
CPT/HCPCS: 36415; 82950